=== PATIENT | female | born 1965 | race Two or more races ===

== ENCOUNTER 2019-05-09 22:13 | Emergency (ER) | payer MEDICAID ==
[~2019-05-09] VITALS: Ht 157.5 cm; Wt 75.5 kg
[2019-05-09 22:16] VITALS: BP 137/71
--- NOTE | 2019-05-09 22:39 | NUR ---
FIRST CONTACT WITH PT PT C/O LEFT LEG PAIN X3 DAYS, DESCRIBING SHARP NERVE PAIN. NO HEAT OR SWELLING NOTED, NO INJURY OR TRAUMA REPORTED. HX FIBROMYALGIA. PT'S AOX4. RESPS EVEN AND UNLABORED. EDMD AT BEDSIDE TO EVALUATE AT THIS TIME.
--- NOTE | 2019-05-09 23:43 | NUR ---
PT REQUESTING PAIN MED. EDMD NOTIFIED.
[2019-05-09] MEDS ORDERED: METHOCARBAMOL 750 MG TABLET ONE (23:45)
[2019-05-09] MEDS ORDERED: KETOROLAC 30 MG/1 ML ONE (23:45)
--- NOTE | 2019-05-09 23:51 | NUR ---
PT MEDICATED PER EMAR FOR PAIN. PT TOLERATED WELL.
[2019-05-10] MEDS ORDERED: KETOROLAC 30 MG/1 ML IM ONE
[2019-05-10] MEDS ORDERED: METHOCARBAMOL 750 MG TABLET PO ONE
--- NOTE | 2019-05-10 00:18 | NUR ---
PT GIVEN DC INSTRUCTIONS AND SCRIPTS. PT EDUCATED REGARDING DC MEDICATIONS. PT'S AOX4. RESPS EVEN AND UNLABORED. NO ACUTE DISTRESS AT DC.
== END 2019-05-10 00:19 | disposition home or self-care (01) ==
LOC: ED 05-10 00:13
DX: M79.652 Pain in left thigh (principal); M25.562 Pain in left knee; M54.42 Lumbago with sciatica, left side; E11.9 Type 2 diabetes mellitus without complications
CPT/HCPCS: 73564; 93971; 96372; 99284; J1885